=== PATIENT | female | born 1985 | race African-American/Black ===

== ENCOUNTER 2016-05-03 16:31 | Emergency (ER) | payer MEDICAID, OTHER ==
[~2016-05-03] VITALS: Ht 177.8 cm; Wt 50.0 kg
[~2016-05-03 16:31] MED LIST: IBUP-232 PO
[2016-05-03 16:33] VITALS: BP 109/61; PULSE 88; RESP 16; TEMP 98.1; O2SAT 99
--- NOTE | 2016-05-03 17:25 | PD ---
HPI Chief Complaint: Behavioral Health Clinician Problem/Complaint Time Seen by Provider: 17:21 Travel History International Travel<30 days: No Contact w/Intl Traveler<30days: No Traveled to known affect area: No History of Present Illness HPI Patient is a 30-year-old otherwise healthy female presenting with suprapubic cramping and a small amount of vaginal bleeding. This began today. Cramping is intermittent. LMP 02/29/2016. She has not taken a home test but believe she is . She states the last 2 weeks she's had some yellow white discharge and has an odor to it as well. Has had some low back pain bilaterally. She denies dysuria, increased urinary urgency or frequency. She denies nausea, vomiting, diarrhea and constipation. PFSH Past Medical History Hx Anticoagulant Therapy: No Cardiovascular Problems: No Chemotherapy: No Cerebrovascular Accident: No Diabetes: No Diminished Hearing: No Respiratory: No ?: : 0 Past Surgical History Section: Yes (X1) Hysterectomy: No Social History Alcohol Use: Yes (rare) Tobacco Use: Yes (1/2 ppd) Substance Use: No Allergies-Medications (Allergen,Severity, Reaction): Coded Allergies: No Known Allergies (Verified , 02/25/16) Reported Meds & Prescriptions Reported Meds & Active Scripts Active Ibuprofen 600 Mg Tab 600 Mg PO Q8HR PRN Review of Systems Except as stated in HPI: all other systems reviewed are Neg Physical Exam Narrative GENERAL: Well-developed and well-nourished adult female in no acute distress. SKIN: Warm and dry. Good turgor without tenting. HEAD: Normocephalic and atraumatic. EYES: PERRL bilaterally, 5mm. EOMI bilaterally. No injection or icterus present. No proptosis. Lids without edema or erythema. ENT: Buccal mucosa pink and moist. Oropharynx free of erythema, tonsillar hypertrophy, masses, swelling, asymmetry and exudates. Uvula midline and airway patent. NECK: Supple, no midline tenderness, crepitus or step-offs. Trachea midline, no JVD. No cervical or facial lymphadenopathy. CARDIOVASCULAR: Regular rate and rhythm without murmurs, rubs, clicks or gallops. Radial and posterior tibial pulses 2+ bilaterally. No pedal edema. RESPIRATORY: Clear to auscultation bilaterally with symmetrical rise and fall, no distress or use of accessory muscles. GASTROINTESTINAL: Very mild suprapubic tenderness without rebound or guarding. No discoloration or distention. Normal bowel sounds all 4 quadrants. No masses or organomegaly present. Negative bilateral CVA tenderness. : External genitalia without lesions, discharge or dried secretions. Speculum exam reveals a small amount of thick white substance that is mildly odiferous. There is no blood or tissue in the vaginal vault. Unable to visualize the cervical os. Was able to palpate the cervix and there is no effacement cervical motion tenderness. No adnexal or pelvic masses present. MUSCULOSKELETAL: No gait disturbances. Patient freely moving all four extremities spontaneously. Extremities without clubbing, cyanosis, or edema. No obvious deformities. NEUROLOGIC: CN II-XII grossly intact. Awake and alert. Motor grossly within normal limits. Normal speech. PSYCHIATRIC: Appropriate mood and affect; insight and judgment normal. *Patient was examined in the presence of a nurse, Christiana, at all times* Data Data Last Documented VS Vital Signs Date Time Temp Pulse Resp B/P Pulse Ox O2 Delivery O2 Flow Rate FiO2 05/03/16 16:33 98.1 88 16 109/61 99 Room Air Orders Type And Screen (05/03/16 17:19) Beta Hcg (Quant/Titer) (05/03/16 17:19) Complete Blood Count With Diff (05/03/16 17:19) Comprehensive Metabolic Panel (05/03/16 17:19) Prothrombin Time / Inr (Pt) (05/03/16 17:19) Act Partial Throm Time (Ptt) (05/03/16 17:19) Urinalysis - C+S If Indicated (05/03/16 17:19) Ed Urine Pregnancytest Poc (05/03/16 17:19) Wet Prep Profile (05/03/16 17:19) Gc And Chlamydia Pcr (05/03/16 18:10) Us Pelvis (Ques Preg/Ectopic) (05/03/16 ) Labs Laboratory Tests Test 05/03/16 05/03/16 17:35 17:50 White Blood Count 8.6 TH/MM3 Red Blood Count 3.99 MIL/MM3 Hemoglobin 12.5 GM/DL Hematocrit 36.6 % Mean Corpuscular Volume 91.8 FL Mean Corpuscular Hemoglobin 31.4 PG Mean Corpuscular Hemoglobin 34.2 % Concent Red Cell Distribution Width 12.4 % Platelet Count 230 TH/MM3 Mean Platelet Volume 8.5 FL Neutrophils (%) (Auto) 64.5 % Lymphocytes (%) (Auto) 25.9 % Monocytes (%) (Auto) 6.3 % Eosinophils (%) (Auto) 2.5 % Basophils (%) (Auto) 0.8 % Neutrophils # (Auto) 5.6 TH/MM3 Lymphocytes # (Auto) 2.2 TH/MM3 Monocytes # (Auto) 0.5 TH/MM3 Eosinophils # (Auto) 0.2 TH/MM3 Basophils # (Auto) 0.1 TH/MM3 CBC Comment AUTO DIFF Differential Total Cells 100 Counted Neutrophils % (Manual) 70 % Lymphocytes % 22 % Monocytes % 7 % Eosinophils % 1 % Neutrophils # (Manual) 6.0 TH/MM3 Differential Comment FINAL DIFF MANUAL Platelet Estimate NORMAL Platelet Morphology Comment NORMAL Red Cell Morphology Comment NORMAL Prothrombin Time 10.8 SEC Prothromb Time International 1.0 RATIO Ratio Activated Partial 27.8 SEC Thromboplast Time Urine Color YELLOW Urine Turbidity HAZY Urine pH 6.0 Urine Specific [place] 1.030 Urine Protein TRACE mg/dL Urine Glucose (UA) NEG mg/dL Urine Ketones NEG mg/dL Urine Occult Blood NEG Urine Nitrite NEG Urine Bilirubin NEG Urine Urobilinogen LESS THAN 2.0 MG/DL Urine Leukocyte Esterase NEG Urine RBC LESS THAN 1 /hpf Urine WBC LESS THAN 1 /hpf Urine Squamous Epithelial 10 /hpf Cells Urine Mucus FEW /lpf Microscopic Urinalysis Comment CULT NOT INDICATED Sodium Level 136 MEQ/L Potassium Level 3.7 MEQ/L Chloride Level 104 MEQ/L Carbon Dioxide Level 22.5 MEQ/L Anion Gap 10 MEQ/L Blood Urea Nitrogen 9 MG/DL Creatinine 0.73 MG/DL Estimat Glomerular Filtration 114 ML/MIN Rate Random Glucose 76 MG/DL Calcium Level 8.4 MG/DL Total Bilirubin 0.1 MG/DL Aspartate Amino Transf 14 U/L (AST/SGOT) Alanine Aminotransferase 19 U/L (ALT/SGPT) Alkaline Phosphatase 77 U/L Total Protein 7.0 GM/DL Albumin 3.2 GM/DL Human Chorionic Gonadotropin, [address] MIU/ML Quant Blood Type O POSITIVE Antibody Screen NEGATIVE Clue Cells (Wet Prep) NONE SEEN Vaginal Trichomonas (Wet Prep) NONE SEEN Vaginal Yeast (Wet Prep) NONE SEEN MDM Medical Decision Making Medical Screen Exam Complete: Yes Emergency Medical Condition: Yes Interpretation(s) Laboratory Tests Test 05/03/16 05/03/16 17:35 17:50 White Blood Count 8.6 TH/MM3 (4.0-11.0) Red Blood Count 3.99 MIL/MM3 (4.00-5.30) Hemoglobin 12.5 GM/DL (11.6-15.3) Hematocrit 36.6 % (35.0-46.0) Mean Corpuscular Volume 91.8 FL (80.0-100.0) Mean Corpuscular Hemoglobin 31.4 PG (27.0-34.0) Mean Corpuscular Hemoglobin 34.2 % Concent (32.0-36.0) Red Cell Distribution Width 12.4 % (11.6-17.2) Platelet Count 230 TH/MM3 (150-450) Mean Platelet Volume 8.5 FL (7.0-11.0) Neutrophils (%) (Auto) 64.5 % (16.0-70.0) Lymphocytes (%) (Auto) 25.9 % (9.0-44.0) Monocytes (%) (Auto) 6.3 % (0.0-8.0) Eosinophils (%) (Auto) 2.5 % (0.0-4.0) Basophils (%) (Auto) 0.8 % (0.0-2.0) Neutrophils # (Auto) 5.6 TH/MM3 (1.8-7.7) Lymphocytes # (Auto) 2.2 TH/MM3 (1.0-4.8) Monocytes # (Auto) 0.5 TH/MM3 (0-0.9) Eosinophils # (Auto) 0.2 TH/MM3 (0-0.4) Basophils # (Auto) 0.1 TH/MM3 (0-0.2) CBC Comment AUTO DIFF Differential Total Cells 100 Counted Neutrophils % (Manual) 70 % (16-70) Lymphocytes % 22 % (9-44) Monocytes % 7 % (0-8) Eosinophils % 1 % (0-4) Neutrophils # (Manual) 6.0 TH/MM3 (1.8-7.7) Differential Comment FINAL DIFF MANUAL Platelet Estimate NORMAL (NORMAL) Platelet Morphology Comment NORMAL (NORMAL) Red Cell Morphology Comment NORMAL (NORMAL) Prothrombin Time 10.8 SEC (9.8-11.6) Prothromb Time International 1.0 RATIO Ratio Activated Partial 27.8 SEC Thromboplast Time (24.3-30.1) Urine Color YELLOW (YELLW/STRAW) Urine Turbidity HAZY (CLEAR) Urine pH 6.0 (5.0-8.5) Urine Specific [place] 1.030 (1.002-1.035) Urine Protein TRACE mg/dL (NEG-TRACE) Urine Glucose (UA) NEG mg/dL (NEG) Urine Ketones NEG mg/dL (NEG) Urine Occult Blood NEG (NEG) Urine Nitrite NEG (NEG) Urine Bilirubin NEG (NEG) Urine Urobilinogen LESS THAN 2.0 MG/DL (LESS THAN 2.0) Urine Leukocyte Esterase NEG (NEG) Urine RBC LESS THAN 1 /hpf (0-3) Urine WBC LESS THAN 1 /hpf (0-5) Urine Squamous Epithelial 10 /hpf (0-5) Cells Urine Mucus FEW /lpf (OCC) Microscopic Urinalysis Comment CULT NOT INDICATED Sodium Level 136 MEQ/L (136-145) Potassium Level 3.7 MEQ/L (3.5-5.1) Chloride Level 104 MEQ/L (98-107) Carbon Dioxide Level 22.5 MEQ/L (21.0-32.0) Anion Gap 10 MEQ/L (5-15) Blood Urea Nitrogen 9 MG/DL (7-18) Creatinine 0.73 MG/DL (0.50-1.00) Estimat Glomerular Filtration 114 ML/MIN Rate (>89) Random Glucose 76 MG/DL (74-106) Calcium Level 8.4 MG/DL (8.5-10.1) Total Bilirubin 0.1 MG/DL (0.2-1.0) Aspartate Amino Transf 14 U/L (15-37) (AST/SGOT) Alanine Aminotransferase 19 U/L (10-53) (ALT/SGPT) Alkaline Phosphatase 77 U/L (45-117) Total Protein 7.0 GM/DL (6.4-8.2) Albumin 3.2 GM/DL (3.4-5.0) Human Chorionic Gonadotropin, [address] MIU/ML Quant (0-5) Blood Type O POSITIVE Antibody Screen NEGATIVE Clue Cells (Wet Prep) NONE SEEN (NONE) Vaginal Trichomonas (Wet Prep) NONE SEEN (NONE) Vaginal Yeast (Wet Prep) NONE SEEN (NONE) Last 24 hours Impressions Pelvis Ultrasound 05/03/16 0000 Signed Impressions: Service Date/Time: Tuesday, May 03, 2016 19:28 - CONCLUSION: 1. Single, viable intrauterine at approximately 8 weeks 5 days gestational age. There is a small subchorionic hemorrhage noted. 2. Cyst of the right ovary, presumably a corpus luteal cyst. Features are not typical of an ectopic. No free fluid. Marino Fountain MD Differential Diagnosis Spontaneous versus threatened versus PID versus ectopic versus urinary tract infection Narrative Course Patient's 30-year-old female presenting with lower abdominal cramping, small amount of spotting earlier today and has not had a menstrual period since February. Urine hCG positive. Mild suprapubic tenderness without rebound or guarding. No masses palpated. Small amount of mucus likely physiologic on exam not cervical motion tenderness. Cervix feel a face to palpation and not able to visualize the cervical os. There was no blood in the vaginal vault. Patient is type O-positive, no Rhogam required. CBC unremarkable. No CALCIUM 8.4, T bili 0.1, AST 11. HCG 96,410. Ultrasound shows single intrauterine at 8 weeks and 5 days. Small subchorionic hemorrhage present. Cyst, right ovary without ectopic appearance. As there is no mass or tenderness in this region patient has a threatened miscarriage at this time. Recommend pelvic rest, smoking cessation and begin taking a vitamin. Follow-up with water pollution control technician as soon as possible within the next 1-2 days.See discharge paperwork for further instructions. The plan was discussed with the patient who acknowledged their understanding and agreement. Reinforced the follow-up with primary care is critically important. Patient instructed on emergent conditions that should prompt return to ED. Diagnosis Primary Impression: Threatened in early Patient Instructions: General Instructions, Threatened Miscarriage (ED) Additional Instructions: Recommend pelvic rest, no intercourse until seen and cleared by water pollution control technician Stop smoking immediately and do not drink alcohol while and this take a significant problems with baby development Begin a vitamin this evening and every day thereafter Follow-up with water pollution control technician in 1-2 days Return to the ED for any acute worsening of symptoms Disposition: 01 DISCHARGE HOME Condition: Stable Marino Salas III May 03, 2016 17:25
[2016-05-03 18:03] LABS: BLOOD, URINE NEG (NEG); COMMENT (UR) CULT NOT INDICATED; CULTURE IF INDICATED CULT NOT INDICATED; GLUCOSE,URINE NEG (NEG); KETONE, URINE NEG (NEG); MUCUS URINE FEW /lpf (OCC); NITRITE,URINE NEG (NEG); SQUAMOUS EPITHELIAL CELL URINE 10 /hpf (0-5); URINE COLOR YELLOW (YELLW/STRAW)
[2016-05-03 18:06] LABS: AUTOMATED NEUTROPHIL # 5.6 TH/MM3 (1.8-7.7); BASOPHIL # 0.1 TH/MM3 (0-0.2); BASOPHIL % 0.8 % (0.0-2.0); EOSINOPHIL # 0.2 TH/MM3 (0-0.4); EOSINOPHIL % 2.5 % (0.0-4.0); HEMATOCRIT 36.6 % (35.0-46.0); LYMPH % 25.9 % (9.0-44.0); LYMPHOCYTE # 2.2 TH/MM3 (1.0-4.8); MEAN CELL VOLUME 91.8 FL (80.0-100.0); MEAN CORPUSCULAR HEMOGLOBIN 31.4 PG (27.0-34.0); MEAN CORPUSCULAR HGB CONC 34.2 % (32.0-36.0); MONO % 6.3 % (0.0-8.0); NEUT % 64.5 % (16.0-70.0); PLATELET COUNT 230 TH/MM3 (150-450); RED BLOOD COUNT 3.99 MIL/MM3 (4.00-5.30); RED CELL DISTRIBUTION WIDTH 12.4 % (11.6-17.2); WHITE BLOOD COUNT 8.6 TH/MM3 (4.0-11.0)
[2016-05-03 18:10] LABS: HEMO FLAGS AUTO DIFF
[2016-05-03 18:13] LABS: APTT (PATIENT) 27.8 SEC (24.3-30.1); PROTHROMBIN TIME - PATIENT 10.8 SEC (9.8-11.6)
[2016-05-03 18:38] LABS: EOSINOPHILS 1 % (0-4); POLYS (SEG NEUTROPHILS) 70 % (16-70); WBC DIFF SAMPLE 100
[2016-05-03 18:39] LABS: PLATELET ESTIMATE SMEAR NORMAL (NORMAL); PLATELET MORPHOLOGY NORMAL (NORMAL); SCAN/DIFF FINAL DIFF MANUAL
[2016-05-03 18:50] LABS: ANION GAP 10 MEQ/L (5-15); AST (GOT) 14 U/L (15-37); BICARBONATE 22.5 MEQ/L (21.0-32.0); BLOOD UREA NITROGEN 9 MG/DL (7-18); CHLORIDE 104 MEQ/L (98-107); GLOMERULAR FILTRATION RATE 114 ML/MIN (>89); POTASSIUM 3.7 MEQ/L (3.5-5.1); SODIUM (NA) 136 MEQ/L (136-145)
[2016-05-03 19:29] LABS: ALKALINE PHOSPHATASE 77 U/L (45-117); ALT (GPT) 19 U/L (10-53); BETA HCG QUANT 96410 MIU/ML (0-5); TOTAL BILIRUBIN ADULT 0.1 MG/DL (0.2-1.0)
--- NOTE | 2016-05-03 20:07 | RADRPT ---
EXAM DATE/TIME: 05/03/2016 19:28 [facility] COMPARISON: No previous studies available for comparison. INDICATIONS : Pelvic cramping and spotting. LAB(S): Beta-hC,410 MEDICAL HISTORY : . SURGICAL HISTORY : section. ENCOUNTER: Initial ACUITY: 1 day PAIN SCORE: 4/10 LOCATION: Bilateral pelvis MEASUREMENTS: UTERUS: 14.5 x 8.3 x 5.4 cm ENDOMETRIAL STRIPE: >20 mm RIGHT OVARY: 5.0 x 2.8 x 2.9 cm LEFT OVARY: 2.1 x 2.2 x 2.4 cm FINDINGS: Yolk sac, gestational sac and pole noted within the uterus. [place]-rump length is 2.11 cm which corresponds to a gestational age of 8 weeks, 5 days. heart tones are demonstrated. There is an 11 x 6 x 13 mm fluid collection adjacent to the gestational sac suggesting a small subcho rionic hemorrhage. A fairly simple appearing 23 mm cyst is seen of the right ovary. Left ovary is normal. No free fluid demonstrated. CONCLUSION: 1. Single, viable intrauterine at approximately 8 weeks 5 days gestational age. There is a small subchorionic hemorrhage noted. 2. Cyst of the right ovary, presumably a corpus luteal cyst. Features are not typical of an ectopic. No free fluid. Marino Fountain MD on May 03, 2016 at 20:04 Board Certified Radiologist. This report was verified electronically.
[2016-05-03 20:42] VITALS: BP 103/55
[2016-05-03 23:52] LABS: CHLAMYDIA PCR NOT DETECTED (NOT DETECT); NEISSERIA PCR NOT DETECTED (NOT DETECT)
[2016-06-03] MEDS ORDERED: METR0.7512 VAGINAL (10:48)
[2016-06-03] MEDS ORDERED: PREN1CAP30 PO (10:48)
[2016-07-22] MEDS ORDERED: TERC0.8C VAGINAL (11:09)
== END 2016-05-03 20:47 | disposition home or self-care (01) ==
LOC: NEPA 16:31
DX: O20.0 Threatened abortion (principal); Z3A.08 8 weeks gestation of pregnancy; F17.210 Nicotine dependence, cigarettes, uncomplicated
CPT/HCPCS: 76700; 80053; 81001; 84702; 84703; 85007; 85027; 85610; 85730; 86850; 86900; 86901; 87210; 87491; 87591

== ENCOUNTER 2016-08-06 16:03 | Emergency (ER) | payer OTHER ==
[~2016-08-06] VITALS: Ht 177.8 cm; Wt 5.0 kg
[~2016-08-06 16:03] MED LIST changes: -IBUP-232 PO; +PREN1CAP30 PO; +TERC0.8C VAGINAL
[2016-08-06 16:14] VITALS: BP 95/63; PULSE 89; RESP 12; TEMP 98.4; O2SAT 100
--- NOTE | 2016-08-06 16:57 | PD ---
HPI Chief Complaint: Injury Time Seen by Provider: 16:43 Travel History International Travel<30 days: No Contact w/Intl Traveler<30days: No Traveled to known affect area: No History of Present Illness HPI 30yo F who is 22 weeks presents to the ED with right foot pain since this morning. Pt slipped in the shower and twisted her foot and has pain on the dorsum of her foot. She was able to ambulate afterwards. Pt states she bend her right knee and stopped the fall but her knee hit her abdomen. She denies any abdominal pain, vaginal bleeding, chest pain, sob, n/v. Pt feels the fetus moving. PFSH Past Medical History Medical History: Denies Significant Hx Hx Anticoagulant Therapy: No Cardiovascular Problems: No Chemotherapy: No Cerebrovascular Accident: No Diabetes: No Diminished Hearing: No Respiratory: No Influenza Vaccination: No ?: LMP: 02/2016 : 0 Past Surgical History Section: Yes (X1) Hysterectomy: No Social History Alcohol Use: Yes (rare) Tobacco Use: Yes (1/2 ppd) Substance Use: No Allergies-Medications (Allergen,Severity, Reaction): Coded Allergies: No Known Allergies (Verified , 08/06/16) Reported Meds & Prescriptions Reported Meds & Active Scripts Active Acetaminophen Extra Strength (Acetaminophen) 500 Mg Tab 500 Mg PO Q6H PRN Provida Dha 16-16-1.25-110 mg ( Without A W/Fe Fum-Fe) 1 Cap Cap 1 Cap PO DAILY Review of Systems Except as stated in HPI: all other systems reviewed are Neg Physical Exam Narrative GENERAL: 30yo F not in distress. SKIN: Focused skin assessment warm/dry. HEAD: Atraumatic. Normocephalic. CARDIOVASCULAR: Regular rate and rhythm. No murmur appreciated. RESPIRATORY: No accessory muscle use. Clear to auscultation. Breath sounds equal bilaterally. GASTROINTESTINAL: Abdomen soft, gravid abdomen. No tenderness or guarding. MUSCULOSKELETAL: Right foot: DP 2+. No ttp medial or lateral malleolus. FROM right ankle. +TTP dorsum of foot over 2-4 proximal metatarsal. Sensation intact. NEUROLOGICAL: Awake and alert. No obvious cranial nerve deficits. Motor grossly within normal limits. Normal speech. PSYCHIATRIC: Appropriate mood and affect; insight and judgment normal. Data Data Last Documented VS Vital Signs Date Time Temp Pulse Resp B/P Pulse Ox O2 Delivery O2 Flow Rate FiO2 4/21/17 18:26 73 16 101/67 99 08/06/16 16:14 98.4 Orders Foot, Limited (2vws) (08/06/16 ) Ed Poc Ultrasound (08/06/16 ) Acetaminophen (Tylenol) (08/06/16 17:00) MDM Medical Decision Making Medical Screen Exam Complete: Yes Emergency Medical Condition: Yes Interpretation(s) Last Impressions Foot X-Ray 08/06/16 0000 Signed Impressions: Service Date/Time: Saturday, August 06, 2016 17:26 - CONCLUSION: Unremarkable study. Dany Vega MD Differential Diagnosis Contusion vs. sprain vs. fracture Narrative Course 30yo F with right foot pain s/p slip in the shower. Pt broke her fall using her right knee and did hit her abdomen with her knee. Pt denies any abdominal pain. Bedside US reassuring with positive movement and normal heart rate. Xray of right foot unremarkable. Pt given acetaminophen and pain has improved. Pt able to ambulate without assistance. BP is on the low side but states that is normal for her. Return precautions given. Procedures Procedure Narrative Emergency Department Pelvic ultrasound was performed with patient consent. The curvilinear probe was used in the transverse and sagittal views within the suprapubic region revealing single intrauterine . heart rate was 154bpm. Diagnosis Primary Impression: Foot pain, right Patient Instructions: General Instructions Departure Forms: Tests/Procedures Additional Instructions: Please follow up with your PMD in 3-7 days. Return to the ED if symptoms worsen. Med/Other Pt SpecificInfo: Prescription(s) given Scripts Acetaminophen (Acetaminophen Extra Strength)500 Mg Uxx222 Mg PO Q6H PRN (PAIN SCALE 1 TO 4) #20 TAB Ref 0 Prov:Flory Pugh 08/06/16 Disposition: 01 DISCHARGE HOME Condition: Stable Flory Pugh Aug 06, 2016 16:57
[2016-08-06] MEDS ORDERED: ACETAMINOPHEN 500 MG CPLT PO ONE (17:00)
--- NOTE | 2016-08-06 17:40 | RADHPO ---
EXAM DATE/TIME: 08/06/2016 17:26 [facility] COMPARISON: No previous studies available for comparison. INDICATIONS : Right medial foot pain post slip and fall. MEDICAL HISTORY : None. SURGICAL HISTORY : None. ENCOUNTER: Initial ACUITY: 1 day PAIN SCORE: 7/10 LOCATION: Right medial foot FINDINGS: No definite fractures, or dislocations are identified. No definite lytic or sclerotic lesion is seen . The joint spaces are well maintained. CONCLUSION: Unremarkable study. Dany Vega MD on August 06, 2016 at 17:38 Board Certified Radiologist. This report was verified electronically.
[2016-08-06] MEDS ORDERED: ACET500T36 PO (17:57)
[2016-08-06 18:26] VITALS: BP 101/67
== END 2016-08-06 18:30 | disposition home or self-care (01) ==
LOC: PHED 16:03
DX: O26.892 Other specified pregnancy related conditions, second trimester (principal); M79.671 Pain in right foot; F17.200 Nicotine dependence, unspecified, uncomplicated; Z3A.22 22 weeks gestation of pregnancy; W01.0XXA Fall on same level from slipping, tripping and stumbling without subsequent striking against object, initial encounter; Y93.E1 Activity, personal bathing and showering; Y92.002 Bathroom of unspecified non-institutional (private) residence as the place of occurrence of the external cause
CPT/HCPCS: 73620; 99283

== ENCOUNTER 2016-12-01 11:14 | Inpatient (IN) | payer OTHER ==
[~2016-12-01] VITALS: Ht 175.3 cm; Wt 65.8 kg
[2016-12-01] VITALS (16 sets, daily range): BP systolic 94–121; BP diastolic 58–89; PULSE 67–100; RESP 16–18; TEMP 97.7–98.4; O2SAT 100
[~2016-12-01 11:14] MED LIST changes: +AMOX500C PO; -TERC0.8C VAGINAL
[2016-12-01] MEDS ORDERED: LACTATED RINGER'S 1000 ML INJ 1,000 ML IV ONE (11:27)
--- NOTE | 2016-12-01 11:29 | HHI.HP ---
HPI Chief Complaint Repeat Date Seen: Dec 01, 2016 Travel History International Travel<30 Days: No Contact w/Intl Traveler<30Days: No History of Present Illness HPI Patient is a 30 year old at 39-3/7 weeks gestation who presents today for repeat . She denies any vaginal bleeding or discharge. No gush or leaking of fluid. Positive movement. care with [facility]. She denies any complications with . She does smoke 1 cigarette/day. Prior for macrosomia. Current fetus measuring LGA. History Past Medical History Medical History: Denies Significant Hx Obstetric History Obstetric History s/p at term for macrosomia Past Surgical History Narrative Surgical Family History Family History: Negative Social History Alcohol Use: No Tobacco Use: Yes (1 cigarette/day) Substance Abuse: No Allergies-Medications (Allergen,Severity, Reaction): Coded Allergies: No Known Allergies (Verified , 11/15/16) Home Meds Active Scripts Amoxicillin 500 Mg Hlo301 Mg PO TID #30 CAP Ref 0 Prov:Amira Cordon [facility] 11/18/16 Without A W/Fe Fum-Fe (Provida Dha 16-16-1.25-110 mg)1 Cap Cap1 Cap PO DAILY #90 BOTTLE Ref 3 Prov:Armida Ford CNM [facility] 06/03/16 Review of Systems Except as stated in HPI: all other systems reviewed are Neg General / Constitutional: No: Fever, Chills Eyes: No: Blurred Vision, Visual changes HENT: No: Headaches Cardiovascular: No: Chest Pain or Discomfort Respiratory: No: Short of Breath Gastrointestinal: No: Nausea, Vomiting Genitourinary: No: Pelvic Pain, Discharge, Vaginal Bleeding Musculoskeletal: No: Edema Neurologic: No: Headache Psychiatric: No: Substance Abuse Physical Exam Narrative GENERAL: Well-nourished, well-developed patient. SKIN: Warm and dry. HEAD: Normocephalic and atraumatic. EYES: No scleral icterus. No injection or drainage. ENT: No nasal drainage noted. Mucous membranes pink. Airway patent. NECK: Supple, trachea midline. No JVD. CARDIOVASCULAR: Regular rate and rhythm without murmurs, gallops, or rubs. RESPIRATORY: Breath sounds equal bilaterally. No accessory muscle use. ABDOMEN/GI: Abdomen soft, non-tender, bowel sounds present, no rebound, no guarding Gravid to 39 weeks size GENITOURINARY: External Genitalia: intact and normal in appearance Presentation: vertex Membranes: intact Uterine Contractions: q3-4min FHT's: Category: I Baseline: 146 Reactive: + Variability: moderate Decels: none EXTREMITIES: No cyanosis or edema. BACK: Nontender without obvious deformity. No CVA tenderness. NEUROLOGICAL: Awake and alert. Motor and sensory grossly within normal limits. Normal speech. Data Data Vital Signs Reviewed: Yes Orders Admit To Inpatient (12/01/16 ) Code Status (12/01/16 11:27) Vital Signs (Adult) .ON ADMISSION (12/01/16 11:27) Activity Oob Ad Mary (12/01/16 11:27) Heart (12/01/16 11:27) Urinary Catheter Management ADRIANNE.Q8H (12/01/16 11:27) ^ Preps (12/01/16 11:27) Scd / [place] / Foot Pump ADRIANNE.QSHIFT (12/01/16 11:27) ^ Ultrasound For [place]atio (12/01/16 11:27) Diet Npo (12/01/16 Lunch) Lactated Ringer's 1000 Ml Inj (Lr 1000 M (12/01/16 11:27) Lactated Ringer's 1000 Ml Inj (Lr 1000 M (12/01/16 11:57) Citric Acid-Sodium Citrate Liq (Bicitra (12/01/16 13:00) Type And Screen (12/01/16 11:27) Complete Blood Count With Diff (12/01/16 11:27) Urinalysis - C+S If Indicated (12/01/16 11:27) Cefazolin Inj (Ancef Inj) (12/01/16 12:30) Inpatient Certification (12/01/16 ) Specimen To Be Collected PRN (12/01/16 11:27) Assessment/Plan Assessment and Plan 30 year old at 39-3/7 weeks gestation. 1. IUP- Category I tracing, reassuring. 2. Repeat - LGA , measured 9lb 1 oz on 11/15 3. GBS positive dw Aida Goyal MD, R3 Dec 01, 2016 11:29
[2016-12-01 12:00] LABS: AUTOMATED NEUTROPHIL # 4.6 TH/MM3 (1.8-7.7); BASOPHIL % 0.4 % (0.0-2.0); EOSINOPHIL % 0.7 % (0.0-4.0); HEMATOCRIT 36.2 % (35.0-46.0); HEMO FLAGS DIFF FINAL; LYMPH % 23.2 % (9.0-44.0); LYMPHOCYTE # 1.6 TH/MM3 (1.0-4.8); MEAN CELL VOLUME 89.6 FL (80.0-100.0); MEAN CORPUSCULAR HEMOGLOBIN 29.6 PG (27.0-34.0); MONO % 7.9 % (0.0-8.0); NEUT % 67.8 % (16.0-70.0); PLATELET COUNT 167 TH/MM3 (150-450); RED BLOOD COUNT 4.04 MIL/MM3 (4.00-5.30); RED CELL DISTRIBUTION WIDTH 12.9 % (11.6-17.2); WHITE BLOOD COUNT 6.8 TH/MM3 (4.0-11.0)
[2016-12-01] MEDS ORDERED: LACTATED RINGER'S 1000 ML INJ 1,000 ML IV SCH ×2 (12:00→19:01)
[2016-12-01 12:06] LABS: BACTERIA, URINE OCC /hpf; BLOOD, URINE NEG (NEG); COMMENT (UR) CULT NOT INDICATED; CULTURE IF INDICATED CULT NOT INDICATED; GLUCOSE,URINE NEG (NEG); KETONE, URINE NEG (NEG); MUCUS URINE FEW /lpf (OCC); NITRITE,URINE NEG (NEG); SQUAMOUS EPITHELIAL CELL URINE 20 /hpf (0-5); TRANSITIONAL EPI CELLS, URINE <1 /hpf; URINE COLOR YELLOW (YELLW/STRAW)
[2016-12-01] MEDS ORDERED: OXYTOCIN 10 UNIT/ML AMP ONE (12:36)
[2016-12-01] MEDS ORDERED: CITRIC ACID-SODIUM CITRATE LIQ 30 ML UDC PO SCH (13:00)
[2016-12-01] MEDS ORDERED: MORPHINE SULFATE PF 5 MG/10 ML VIAL ONE (14:02)
[2016-12-01] MEDS ORDERED: OXYTOCIN 30 UNITS-500ML PREMIX 500 ML IV ONE (14:15)
[2016-12-01] MEDS ORDERED: ZOLPIDEM TARTRATE 5 MG TAB PO PRN (14:15)
[2016-12-01] MEDS ORDERED: ONDANSETRON HCL 4 MG/2 ML VIAL IV PUSH PRN (14:15)
[2016-12-01] MEDS ORDERED: SODIUM CHLORIDE 0.9% FLUSH 10 ML FLUSH IV FLUSH PRN (14:15)
[2016-12-01] MEDS ORDERED: SIMETHICONE 80 MG CHEWABLE TAB PO PRN (14:15)
[2016-12-01] MEDS ORDERED: ACETAMINOPHEN 325 MG TAB PO PRN (14:15)
[2016-12-01] MEDS ORDERED: ACETAMINOPHEN 1000 MG/100 ML VIAL IV ONE ×2 (14:49→16:30)
[2016-12-01] MEDS ORDERED: EPIDURAL-NO SYSTEMIC NARCOTICS PRN (16:30)
[2016-12-01] MEDS ORDERED: EPIDURAL-DO NOT ADMINISTER ANTICOAGULANTS PRN (16:30)
[2016-12-01] MEDS ORDERED: EPIDURAL-NALOXONE HCL 0.4 MG/ML AMP IV PRN (16:30)
[2016-12-01] MEDS ORDERED: EPIDURAL-DIPHENHYDRAMINE HCL 50 MG CAP PO PRN (16:30)
[2016-12-01] MEDS ORDERED: EPIDURAL-DIPHENHYDRAMINE HCL 50 MG/ML VIAL IV PUSH PRN (16:30)
[2016-12-01] MEDS: IBUPROFEN 600 MG TAB PO PRN (20:59)
[2016-12-01] MEDS: oxyCODONE/ACETAMINOPHEN 5 MG/325 MG TAB PO PRN (21:00)
[2016-12-01] MEDS ORDERED: SODIUM CHLORIDE 0.9% FLUSH 10 ML FLUSH IV FLUSH SCH (21:00)
[2016-12-02 00:15] VITALS: BP 108/72; PULSE 72; RESP 16; TEMP 98.7; O2SAT 98
[2016-12-02] MEDS ORDERED: OXYTOCIN 30 UNITS-500ML PREMIX 500 ML IV PRN (00:15)
[2016-12-02] MEDS: IBUPROFEN 600 MG TAB PO PRN ×3 (02:40→15:40)
[2016-12-02] MEDS: oxyCODONE/ACETAMINOPHEN 5 MG/325 MG TAB PO PRN ×4 (02:40→20:16)
[2016-12-02 04:12] VITALS: BP 94/55; PULSE 68; RESP 18; TEMP 98.2
--- NOTE | 2016-12-02 06:46 | HHI.OB ---
Subjective Remarks Postoperative day # 1 AFVSS overnight. Incision not draining. Decreased lochia. Denies dysuria. No breast tenderness. She is feeding the baby via breast. Appetite good. No nausea or vomiting. Positive []flatus/bowel movement. Ambulating well. Denies calf pain or shortness of breath. Otherwise, she is doing well this morning and has no other complaints. Objective Vitals/I&O Vital Signs Date Time Temp Pulse Resp B/P Pulse Ox O2 Delivery O2 Flow Rate FiO2 12/02/16 04:12 98.2 68 18 94/55 12/02/16 00:15 98 12/02/16 00:15 98 12/02/16 00:15 98.7 72 16 108/72 12/02/16 00:15 98.7 72 16 108/72 12/01/16 19:46 98.0 72 16 110/65 12/01/16 15:45 97.7 69 16 106/69 12/01/16 15:15 78 17 121/89 100 12/01/16 15:15 97.8 12/01/16 15:00 76 18 100 12/01/16 15:00 121/58 12/01/16 14:45 71 17 108/71 100 12/01/16 14:30 67 18 108/70 100 12/01/16 14:15 100 12/01/16 14:09 81 17 100/59 12/01/16 14:00 100 12/01/16 14:00 97.8 74 18 94/60 12/01/16 12:10 79 12/01/16 12:05 90 12/01/16 12:00 79 12/01/16 11:40 100 12/01/16 11:39 98.4 18 12/01/16 11:35 77 12/01/16 11:33 81 95/75 Result Diagram: 12/01/16 1135 Objective Remarks GENERAL: Well-nourished, well-developed patient. CARDIOVASCULAR: Regular rate and rhythm without murmurs, gallops, or rubs. RESPIRATORY: Breath sounds equal bilaterally. No accessory muscle use. ABDOMEN/GI: Abdomen soft, non-tender, bowel sounds present. Incision: Clean, dry and intact. Fundus: Firm, non-tender at umbilicus. GENITOURINARY: Light to moderate bleeding. EXTREMITIES: No cyanosis or edema, non-tender, without signs of DVT. Medications and IVs Current Medications Medications (Trade) Dose Ordered Sig/Adalid Route Start Time Stop Time Status Last Admin (Lr 1000 ml Inj) 1,000 ml @ 100 mls/hr Q10H IV 12/01/16 19:01 12/02/16 15:00 (NS Flush) 2 ml BID IV FLUSH 12/01/16 21:00 (NS Flush) 2 ml UNSCH PRN IV FLUSH 12/01/16 14:15 (Mylicon Chew) 80 mg QID PRN PO 12/01/16 14:15 (Tylenol) 650 mg Q6H PRN PO 12/01/16 14:15 (Motrin) 600 mg Q6H PRN PO 12/01/16 14:15 12/02/16 02:40 (Percocet 5-325 Mg) 1 tab Q4H PRN PO 12/01/16 14:15 (Percocet 5-325 Mg) 2 tab Q4H PRN PO 12/01/16 14:15 12/02/16 02:40 (Chantelle-Colace) 2 tab Q12H PRN PO 12/01/16 14:15 (Ambien) 5 mg HS PRN PO 12/01/16 14:15 (M-M-R Ii Inj) 0.5 ml ONCE ONCE SQ 12/02/16 16:00 12/02/16 16:01 (Boostrix Inj) 0.5 ml ONCE ONCE IM 12/02/16 16:00 12/02/16 16:01 (Zofran Inj) 4 mg Q6H PRN IV PUSH 12/01/16 14:15 Miscellaneous Information NO SYSTEMIC NARCOTICS TO BE GIVEN FO... UNSCH PRN .XX 12/01/16 16:30 12/02/16 16:29 (Narcan Inj) 0.4 mg UNSCH PRN IV 12/01/16 16:30 12/02/16 16:29 (Benadryl Inj) 25 mg Q6H PRN IV PUSH 12/01/16 16:30 12/02/16 16:29 (Benadryl) 50 mg Q6H PRN PO 12/01/16 16:30 12/02/16 16:29 Miscellaneous Information ALL NURSING DEPARTMENTS UNSCH PRN .XX 12/01/16 16:30 12/02/16 16:29 Assessment/Plan Assessment and Plan 30 y/o female who is POD# 1 s/p CXN. -Continue routine care. -Percocet and Motrin PRN pain. -Encouraged OOB. Advised pelvic rest for 6 wks. Will need a f/u appt. in 1 wk for incision check. -Re: ctrl, she would like OCP. -D/c in 1-[address] Carter Mercado,Aida Alas MD, R3 Dec 02, 2016 06:46
--- NOTE | 2016-12-02 06:47 | MP ---
cc: CHOLO MACHADO MD DATE OF SURGERY 12/01/2016 PREOPERATIVE DIAGNOSIS Previous section at term for repeat section. POSTOPERATIVE DIAGNOSIS Previous section at term for repeat section. PROCEDURE PERFORMED Repeat low transverse section SURGEON Cholo Machado MD [employer] Dr. Mercado, [facility] ANESTHESIA Spinal PREOP NOTE The patient is a 30 year-old black female G2, P1 previous section now for repeat section at 39-weeks. PROCEDURE The patient was taken to the operating room, placed in the supine position on the operating room table. After adequate spinal anesthesia was administered, she was prepped and draped for abdominal surgery. A previous Pfannenstiel incision was incised out and cast off. The incision carried through the fascia sharply and the fascia incised laterally. The incision made in the midline and extended superiorly and inferiorly. The peritoneal cavity was entered and a large band of adhesion was noted on the right mid abdomen to uterine fundus. That was incised through with Bovie cautery with good hemostasis. The bladder blade placed at the lower edge of the incision. The visceral peritoneum reflected off the lower uterine segment and placed on the bladder blade. A transverse hysterotomy was made and extended bluntly bilaterally and a male was delivered at 1:14 p.m. weight 4060 grams, 's 8 and 9. There were no complications. The placenta was extracted, cord blood obtained. The uterus exteriorized and the hysterotomy closed with a running layer of chromic followed by imbricating suture of same. Hemostasis was achieved. The bladder reapproximated with a running stitch of 2-0 Vicryl. The uterus elevated, blood suctioned from the cul-de-sac and gutters. The uterus placed into the peritoneal cavity. The muscle reapproximated with stick ties of 2-0 Vicryl. The fascia closed in a running layer with 0 Vicryl. The subcutaneous tissues were reapproximated 3-0 plain and skin closed with running 3-0 Monocryl subcuticular stitch. Steri-Strips applied. ESTIMATED BLOOD LOSS 100 cc COMPLICATIONS There were no complications. Sponge, needle and instrument counts were correct x 2 and the patient was taken to Recovery in stable condition. [facility]. MD NATACHA Holguin/NORM /2:02 PM /6:31 AM
[2016-12-02 07:50] VITALS: BP 98/61; PULSE 64; RESP 16; TEMP 98.6
[2016-12-02 09:07] LABS: AUTOMATED NEUTROPHIL # 12.9 TH/MM3 (1.8-7.7); BASOPHIL % 0.2 % (0.0-2.0); EOSINOPHIL % 0.3 % (0.0-4.0); HEMATOCRIT 32.1 % (35.0-46.0); HEMO FLAGS DIFF FINAL; LYMPH % 10.3 % (9.0-44.0); LYMPHOCYTE # 1.6 TH/MM3 (1.0-4.8); MEAN CELL VOLUME 89.5 FL (80.0-100.0); MEAN CORPUSCULAR HEMOGLOBIN 29.9 PG (27.0-34.0); MEAN CORPUSCULAR HGB CONC 33.4 % (32.0-36.0); MONO % 6.3 % (0.0-8.0); NEUT % 82.9 % (16.0-70.0); PLATELET COUNT 137 TH/MM3 (150-450); RED BLOOD COUNT 3.58 MIL/MM3 (4.00-5.30); RED CELL DISTRIBUTION WIDTH 12.4 % (11.6-17.2); WHITE BLOOD COUNT 15.5 TH/MM3 (4.0-11.0)
[2016-12-02] MEDS ORDERED: DIPHTH/TETANUS/ACEL PERTUSSIS (BOOSTER) 0.5 ML VIAL/PFS IM ONE (16:00)
[2016-12-02] MEDS ORDERED: MEASLES, MUMPS, RUBELLA VACCINE 0.5 ML VIAL SQ ONE (16:00)
[2016-12-02 20:00] VITALS: BP 100/64; PULSE 72; RESP 18; TEMP 98.2
[2016-12-02] MEDS: DOCUSATE SODIUM 50 MG/SENNA 8.6 MG TAB PO PRN (20:31)
[2016-12-03] MEDS: IBUPROFEN 600 MG TAB PO PRN ×2 (01:09→11:01)
[2016-12-03] MEDS: oxyCODONE/ACETAMINOPHEN 5 MG/325 MG TAB PO PRN ×3 (01:10→11:02)
--- NOTE | 2016-12-03 07:22 | HHI.OB ---
Subjective Remarks Postoperative day # 2 AFVSS overnight. Incision not draining. Decreased lochia. Denies dysuria. No breast tenderness. She is feeding the baby via breast. Appetite good. No nausea or vomiting. No flatus/bowel movement yet. Ambulating well. Denies calf pain or shortness of breath. Otherwise, she is doing well this morning and has no other complaints. Objective Vitals/I&O Vital Signs Date Time Temp Pulse Resp B/P Pulse Ox O2 Delivery O2 Flow Rate FiO2 12/02/16 20:00 98.2 72 18 100/64 12/02/16 07:50 64 98/61 12/02/16 07:50 98.6 16 Result Diagram: 12/02/16 0835 Objective Remarks GENERAL: Well-nourished, well-developed patient. CARDIOVASCULAR: Regular rate and rhythm without murmurs, gallops, or rubs. RESPIRATORY: Breath sounds equal bilaterally. No accessory muscle use. ABDOMEN/GI: Abdomen soft, non-tender, bowel sounds present. Incision: Clean, dry and intact. Fundus: Firm, non-tender at umbilicus. GENITOURINARY: Light to moderate bleeding. EXTREMITIES: No cyanosis or edema, non-tender, without signs of DVT. Medications and IVs Current Medications Medications (Trade) Dose Ordered Sig/Adalid Route Start Time Stop Time Status Last Admin (NS Flush) 2 ml BID IV FLUSH 12/01/16 21:00 (NS Flush) 2 ml UNSCH PRN IV FLUSH 12/01/16 14:15 (Mylicon Chew) 80 mg QID PRN PO 12/01/16 14:15 (Tylenol) 650 mg Q6H PRN PO 12/01/16 14:15 (Motrin) 600 mg Q6H PRN PO 12/01/16 14:15 12/03/16 01:09 (Percocet 5-325 Mg) 1 tab Q4H PRN PO 12/01/16 14:15 12/02/16 13:41 (Percocet 5-325 Mg) 2 tab Q4H PRN PO 12/01/16 14:15 12/03/16 06:04 (Chantelle-Colace) 2 tab Q12H PRN PO 12/01/16 14:15 12/02/16 20:31 (Ambien) 5 mg HS PRN PO 12/01/16 14:15 (Zofran Inj) 4 mg Q6H PRN IV PUSH 12/01/16 14:15 Assessment/Plan Assessment and Plan 30 y/o female who is POD# 2 s/p CXN. -Continue routine care. -No flatus or BM yet but tolerating PO intake, continue supportive care and monitoring. -Percocet and Motrin PRN pain. -Encouraged OOB. Advised pelvic rest for 6 wks. Will need a f/u appt. in 1 wk for incision check. -Re: ctrl, she would like OCP. -Anticipate discharge today or tomorrow. dw Dr. Moy and Dr. Reyes R1 Aida Mercado MD, R3 Dec 03, 2016 07:22
[2016-12-03 08:00] VITALS: BP 102/76; PULSE 68; RESP 16; TEMP 98.2
[2016-12-03] MEDS ORDERED: OXYC1TAB63 PO ×2 (10:08→11:03)
[2016-12-03] MEDS ORDERED: IBUP-232 PO (10:08)
[2016-12-03] MEDS ORDERED: PERI8.6T PO (10:08)
--- NOTE | 2016-12-03 10:09 | HHI.DCPOC ---
Discharge Care Plan Diagnosis: (1) delivery delivered Report Symptoms to Your Doctor -Temperature above 100.5 degrees -Redness, of incision or excessive or foul smelling drainage -Unusual pain or calf pain -Increased vaginal bleeding -Painful or difficulty urinating -Feelings of extreme sadness or anxiety after 2 weeks Goals to Promote Your Health * To prevent worsening of your condition and complications * To maintain your health at the optimal level Directions to Meet Your Goals Take your medications as prescribed Follow your dietary instruction Follow activity as directed Ensure plenty of rest for recovery Drink fluids for hydration Keep your appointments as scheduled Take your immunizations and boosters as scheduled If your symptoms worsen call your PCP, if no PCP go to Urgent Care Center or Emergency Room Smoking is Dangerous to Your Health. Avoid second hand smoke Call the 24-hour crisis hotline for domestic abuse at Aida Mercado MD, R3 Dec 03, 2016 10:09
[2016-12-03] MEDS: DOCUSATE SODIUM 50 MG/SENNA 8.6 MG TAB PO PRN (11:01)
[2016-12-09] MEDS ORDERED: PERI8.6T PO (09:41)
[2016-12-09] MEDS ORDERED: IBUP800T23 PO (09:42)
[2017-01-07] MEDS ORDERED: SPRI28TA PO (09:56)
[2017-01-07] MEDS ORDERED: METR500T10 PO (09:57)
== END 2016-12-03 14:27 | disposition home or self-care (01) | DRG 766 ==
LOC: H2EB 11:14 → H1EA 15:58
PROVIDERS: ADMIT Obstetrics & Gynecology Maternal & Fetal Medicine; ATTEND Obstetrics & Gynecology Maternal & Fetal Medicine
PROC: 10D00Z1 Extraction of Products of Conception, Low, Open Approach (ICD-10-PCS; principal; 2016-12-01)
DX: O34.219 Maternal care for unspecified type scar from previous cesarean delivery (principal); F17.210 Nicotine dependence, cigarettes, uncomplicated; Z37.0 Single live birth; O99.824 Streptococcus B carrier state complicating childbirth; O99.334 Smoking (tobacco) complicating childbirth; O36.63X0 Maternal care for excessive fetal growth, third trimester, not applicable or unspecified; Z3A.39 39 weeks gestation of pregnancy
CPT/HCPCS: 81001; 85025; 86850; 86900; 86901; J0131; J0690; J2274; J2590; J7120